=== PATIENT | female | born 1975 | race Caucasian/White ===

== ENCOUNTER 2017-09-08 15:49 | Emergency (ER) | payer MEDICARE, MEDICAID ==
[2013-06-19 03:08] VITALS: BMI 35.6
[~2017-09-08 15:49] MED LIST: CATAPRES0.2 MG; NORCO 10/325 TA1 TA1 PO; NORCO 5/325 TAB1 TA1 PO; SEPTRA DS TABLE1 TAB PO; TRAZODONE HCL150 MG PO; TRAZODONE HCL300 MG PO
== END 2017-09-08 17:28 | disposition home or self-care (01) ==
LOC: D.ER 15:49
DX: M54.16 Radiculopathy, lumbar region (principal); M51.36 Other intervertebral disc degeneration, lumbar region; F17.200 Nicotine dependence, unspecified, uncomplicated

== ENCOUNTER 2017-09-20 16:18 | Emergency (ER) | payer MEDICARE, MEDICAID ==
[2013-06-19 03:08] VITALS: BMI 35.6
== END 2017-09-20 17:35 | disposition home or self-care (01) ==
LOC: D.ER 16:18
DX: S60.222A Contusion of left hand, initial encounter (principal); S60.221A Contusion of right hand, initial encounter; S20.219A Contusion of unspecified front wall of thorax, initial encounter; S30.1XXA Contusion of abdominal wall, initial encounter; S20.229A Contusion of unspecified back wall of thorax, initial encounter; S30.0XXA Contusion of lower back and pelvis, initial encounter; Y04.2XXA Assault by strike against or bumped into by another person, initial encounter; Y93.89 Activity, other specified; Y92.410 Unspecified street and highway as the place of occurrence of the external cause; F17.200 Nicotine dependence, unspecified, uncomplicated

== ENCOUNTER 2018-01-29 12:51 | Emergency (ER) | payer MEDICARE, MEDICAID ==
[2013-06-19 03:08] VITALS: BMI 35.6
== END 2018-01-29 15:02 | disposition left against medical advice (07) ==
LOC: D.ER 12:51
DX: M79.602 Pain in left arm (principal)

== ENCOUNTER 2018-05-12 12:56 | Emergency (ER) | payer MEDICARE ==
[~2018-05-12] VITALS: Ht 167.6 cm; Wt 84.1 kg
[2018-05-12 13:13] VITALS: BP 124/88; Ht 167.6 cm; Wt 84.1 kg
== END 2018-05-12 14:43 | disposition home or self-care (01) ==
LOC: D.ER 12:56
DX: L02.416 Cutaneous abscess of left lower limb (principal)

== ENCOUNTER 2018-07-08 14:22 | Emergency (ER) | payer MEDICARE, MEDICAID ==
[~2018-07-08] VITALS: Ht 167.6 cm; Wt 81.8 kg
[2018-07-08 14:26] VITALS: Ht 167.6 cm; Wt 81.8 kg
[2018-07-08 15:02] LABS: APPEARANCE HAZY (CLEAR); COLOR YELLOW (YELLOW); SPECIFIC GRAVITY 1.025 (1.005-1.020)
[2018-07-08 15:03] LABS: BILIRUBIN NEGATIVE (NEGATIVE); GLUCOSE NEGATIVE (NEGATIVE); KETONE NEGATIVE (NEGATIVE); NITRITE POSITIVE (NEGATIVE); PROTEIN NEGATIVE (NEGATIVE); UROBILINOGEN NORMAL (NORMAL)
[2018-07-08 15:04] LABS: BACTERIA MANY /hpf (NONE SEEN); RED CELLS - URINE 0-5 /hpf (0-5)
[2018-07-08 15:19] LABS: UDS - AMPHET NEGATIVE QUAL (NEGATIVE); UDS - BARB NEGATIVE QUAL (NEGATIVE); UDS - BENZO NEGATIVE QUAL (NEGATIVE); UDS - COCAINE NEGATIVE QUAL (NEGATIVE); UDS - OPIATE NEGATIVE QUAL (NEGATIVE); UDS - PCP NEGATIVE QUAL (NEGATIVE); UDS - THC POSITIVE QUAL (NEGATIVE)
[2018-07-08 15:27] LABS: BASOPHILS 0.1 % (0-2); EOSINOPHILS 1.6 % (0-7); HEMATOCRIT 43.7 % (36.0-48.0); HEMOGLOBIN 14.6 g/dL (12-16); IMMATURE GRANULOCYTES 0.3 % (0-5); LYMPHOCYTES 24.7 % (15-50); MCH 28.7 pg (26.0-34.0); MCHC 33.4 g/dL (31.0-37.0); MCV 85.9 fL (80.0-100.0); MEAN PLATELET VOLUME 10.2 fL (7.4-10.4); NEUTROPHILS 64.3 % (40-80); RBC 5.09 10x6/uL (4.00-5.40); RDW 14.4 % (11.5-14.5); WBC 10.8 10x3/uL (4.8-10.8)
[2018-07-08 15:42] LABS: PLATELET COUNT 229 10x3/uL (130-400)
[2018-07-08 16:25] LABS: ALBUMIN 3.8 g/dL (3.4-5.0); ALKALINE PHOSPHATASE 103 U/L (46-116); ALT (SGPT) 32 U/L (10-68); CALC OSMOLALITY 280 mosm/kg (275-300); CALCIUM 9.3 mg/dL (8.5-10.1); CARBON DIOXIDE 29.8 mmol/L (21.0-32.0); CHLORIDE - SERUM 101 mmol/L (98-107); CREATININE - SERUM 0.7 mg/dL (0.6-1.3); POTASSIUM - SERUM 3.9 mmol/L (3.5-5.1); PROTEIN - SERUM 7.7 g/dL (6.4-8.2); SODIUM 139 mmol/L (136-145); UREA NITROGEN 15 mg/dL (7-18); eGFR NON AFRICAN AMERICAN > 90 mL/min (90-120)
[2018-07-08 16:30] LABS: GLUCOSE 128 mg/dL (74-106)
[2018-07-08 16:34] LABS: THYROID STIMULATING HORMONE 1.06 uIU/mL (0.36-3.74)
[2018-07-09 01:46] VITALS: BP 138/84
== END 2018-07-09 01:47 | disposition other institution (70) ==
LOC: D.ER 14:22
PROVIDERS: Family Medicine
DX: F32.9 Major depressive disorder, single episode, unspecified (principal); R45.851 Suicidal ideations; F17.200 Nicotine dependence, unspecified, uncomplicated